=== PATIENT | female | born 1980 | race Caucasian/White ===

== ENCOUNTER → 2019-12-17 08:53 | Outpatient (CLI) | payer OTHER, MEDICAID, SELFPAY ==
[2019-12-19 15:38] LABS: COVID19 Sendout Not Detected (Not Detected)
== END ==
PROVIDERS: Visit Provider Physician Assistant
DX: Z11.59 Encounter for screening for other viral diseases (principal); R11.2 Nausea with vomiting, unspecified
CPT/HCPCS: 87635

== ENCOUNTER 2020-01-18 18:10 | Emergency (ER) | payer OTHER, MEDICAID, SELFPAY ==
[2020-01-18] VITALS (12 sets, daily range): BP systolic 153–191; BP diastolic 111–125; PULSE 81–130; RESP 13–42; TEMP 36.4–36.7; O2SAT 95–100
--- NOTE | 2020-01-18 19:21 | ED.WEAKNESS ---
HPI - Weakness General Chief complaint: Weakness Stated complaint: Sweating, Coughing, Throwing Up Time Seen by Provider: 01/18/20 19:08 Source: patient Mode of arrival: Ambulatory Limitations: no limitations History of Present Illness HPI Narrative: Blood pressure noted. No history of high blood pressure. Denies taking any [id number] cold medication. Denies any headache chest pain or dyspnea. No numbness tingling .. Patient complains 1 week of general fatigue as well as sore throat and hoarse voice. Her friend states she was tested positive for strep throat over the weekend. Patient had nonbloody vomiting yesterday and today. Decreased appetite oral intake in the past week. Urine specimen very dark at bedside. Complains of dry cough as well. Sweating as well. Denies any coronavirus exposure. EKG on triage noted. However will repeat has P-waves noted and may be sinus arrhythmia. No history of atrial fibrillation. Will repeat EKG after normal saline bolus. Today patient states started with urinary urgency and frequency. Denies drug abuse or use, does states she drank alcohol today. But denies every day alcohol use Related Data Previous Rx's Medication Instructions Recorded lisinopril 5 mg PO DAILY #14 tab 01/18/20 nitrofurantoin monohyd/m-cryst 100 mg PO Q12H 5 Days #10 cap 01/18/20 [Macrobid] Allergies Allergy/AdvReac Type Severity Reaction Status Date / Time PENICILLIN Allergy Mild HIVES,FEVER Uncoded 12/17/19 08:56 ,RASH Review of Systems Review of Systems Narrative: GENERAL: Complains of chills, fatigue, malaise, fever, sweats. HEENT: Denies sinus pain, ear pain, complains of sore throat, denies difficulty swallowing, dizziness. RESPIRATORY: Denies dyspnea, complains cough, denies wheezing, hemoptysis, sputum. CARDIOVASCULAR: Denies chest pain, palpitations, orthopnea, edema, GASTROINTESTINAL: Complains nausea, vomiting, denies abdominal pain, diarrhea, constipation, melena. : Complains dysuria, frequency, denies incontinence, hematuria, urinary retention. MUSCULOSKELETAL: denies weakness, joint pain, or bony pain SKIN: Denies rash, skin lesions, or other NEUROLOGIC: Denies weakness, headache, numbness, change in speech, confusion, seizures, incoordination. PSYCHIATRIC: No concerning psychosocial issues. ROS Unobtainable: All systems reviewed & are unremarkable except as noted in HPI and below Patient History Social History Smoking Status: Current every day smoker Smoking Status: Current every day smoker alcohol intake frequency: holidays/special occasions only Substance Use Type: does not use Exam Narrative Exam Narrative: GENERAL: patient appears stated age. Well-nourished, well-developed patient, in no distress, not toxic HEAD: Atraumatic. Normocephalic. EYES: Pupils equal round and reactive. Extraocular motions intact. No scleral icterus. No injection or drainage. ENT: Nose without bleeding, purulent drainage. Throat without erythema, tonsillar hypertrophy or exudate. Airway patent. NECK: Trachea midline. Non tender CARDIOVASCULAR: Tachycardia with Regular rate and rhythm without murmurs, gallops, or rubs. RESPIRATORY: Clear to auscultation. Breath sounds equal bilaterally. No wheezes, rales, or rhonchi. Speaks full sentences GASTROINTESTINAL: Abdomen soft, non-tender, nondistended. EXTREMITIES: No edema or joint tenderness. BACK: Nontender without deformity or crepitance. No flank tenderness. NEURO: AOx3. SKIN: No rash or erythema of visible areas PSYCH: Slightly anxious, is cooperative Initial Vital Signs Initial Vital Signs: Vital Signs Temperature 97.5 F L 01/18/20 18:38 Pulse Rate 130 H 01/18/20 18:38 Respiratory Rate 20 01/18/20 18:38 Blood Pressure 185/125 H 01/18/20 18:38 Pulse Oximetry 98 01/18/20 18:38 Course Orders Ordered: ED Orders 01/18/20 20:06 XR chest 1V Stat Discontinued Medications Sodium Chloride (Normal Saline 0.9%) 1,000 mls @ 1,000 mls/hr IV BOLUS ONE Stop: 01/18/20 20:17 Last Infusion: 01/18/20 21:08 Dose: 1,000 mls/hr Documented by: Admin: 01/18/20 20:08 Dose: 1,000 mls/hr Documented by: SOLEDAD Lisinopril (Zestril) 5 mg PO NOW ONE Stop: 01/18/20 21:40 Last Admin: 01/18/20 21:51 Dose: 5 mg Documented by: YURY Nitrofurantoin Macrocrystals (Macrobid 100 Mg Capsule) 100 mg PO NOW ONE Stop: 01/18/20 21:40 Last Admin: 01/18/20 21:49 Dose: 100 mg Documented by: YURY Reevaluation(s) Reevaluation #1: 175/114.... Blood pressures improved. Trending downward after lisinopril. Appropriate for discharge home. Patient has no complaints of chest pain dyspnea palpitation headaches at this time. No numbness tingling or weakness spoke with patient results. Likely viral upper respiratory infection/UTI Time: 22:11 Vital Signs Vital signs: Vital Signs - 8 hr 01/18/20 21:00 01/18/20 21:30 01/18/20 21:51 Temperature Pulse Rate 88 88 117 H Respiratory Rate 23 20 Blood Pressure 179/124 H 191/117 H 191/117 H Pulse Oximetry 100 100 01/18/20 22:00 01/18/20 22:50 Temperature 98.0 F Pulse Rate 86 Respiratory Rate 20 Blood Pressure 175/114 H Pulse Oximetry 100 MDM - Weakness Differential Diagnosis Differential diagnosis: Likely dehydration and other (UTI/anxiety/alcohol intoxication/strep throat/upper respiratory infection) Lab Data Attestation: I reviewed the patient's lab results. Result diagrams: 01/18/20 19:16 01/18/20 19:16 Labs: Lab Results 01/18/20 01/18/20 01/18/20 Range/Units 18:51 18:51 19:16 WBC 9.3 (4.5-11.0) X10^3/uL RBC 4.47 (4.0-5.2) X10^6/uL Hgb 15.2 (12.0-16.0) g/dL Hct 44.0 (36-46) % MCV 98.5 (80-100) fL MCH 34.0 (26-34) PG MCHC 34.5 (30-36) % RDW 14.0 (11.6-14.8) % Plt Count 155 (150-400) X10^3/uL Neut % (Auto) 74.7 (50-75) % Lymph % (Auto) 17.4 L (25-40) % [place] % (Auto) 7.1 (3-14) % Eos % (Auto) 0.6 L (2-4) % Baso % (Auto) 0.2 (0-2) % Neut # (Auto) 7000 (2109-4753) /uL Lymph # (Auto) 1600 (5762-9027) /uL [place] # (Auto) 700 (0-900) /uL Eos # (Auto) 100 (0-450) /uL Baso # (Auto) 0 (0-100) /uL PT (10.1-12.7) SECONDS INR (0.9-1.3) APTT (26.4-36.2) SECONDS Sodium (137-145) mmol/L Potassium (3.4-5.1) mmol/L Chloride (98-107) mmol/L Carbon Dioxide (22-32) mmol/L BUN (7-17) mg/dL Creatinine (0.52-1.04) mg/dL Estimated GFR (>60) mL/min BUN/Creatinine Ratio (6-22) Glucose (70-100) mg/dL Calcium (8.4-10.2) mg/dL Total Bilirubin (0.2-1.3) mg/dL AST (14-36) IU/L ALT (<35) IU/L Alkaline Phosphatase (38-126) U/L Total Creatine Kinase (30-135) U/L CK-MB (CK-2) CK-MB (CK-2) Rel Index Troponin I (0.01-0.034) ng/mL Total Protein (6.3-8.2) g/dL Albumin (3.5-5.0) g/dL Globulin (1.7-4.1) g/dL Albumin/Globulin Ratio (1.0-2.8) Lipase (23-300) U/L Urine RBC 0-1/hpf (0-5/HPF) Urine WBC 5-10/hpf H (0-5/HPF) Ur Squamous Epith Cells 1-5 /hpf (0-5/HPF) Ur Renal Epithelial Cell 0-1/hpf (0-1/HPF) Amorphous Sediment 1+ Urine Bacteria Many (>30) H (None) Urine Mucus 1+ H (Negative) Ur Culture Indicated? Specimen cultured U Opiates 300ng/mL cut Negative (Negative) Ur Oxycodone Screen Negative (Negative) Urine Methadone Screen Negative (Negative) Ur Barbiturates Screen Negative (Negative) U Tricyclic Antidepress Negative (Negative) Ur Phencyclidine Scrn Negative (Negative) Ur Amphetamines Screen Negative (Negative) U Methamphetamines Scrn Negative (Negative) Ur MDMA Scrn (Ecstasy) Negative (Negative) U Benzodiazepines Scrn Negative (Negative) Urine Cocaine Screen Negative (Negative) U Marijuana (THC) Screen Negative (Negative) Ethyl Alcohol ( - 10) mg/dL 01/18/20 01/18/20 01/18/20 Range/Units 19:16 19:16 19:16 WBC (4.5-11.0) X10^3/uL RBC (4.0-5.2) X10^6/uL Hgb (12.0-16.0) g/dL Hct (36-46) % MCV (80-100) fL MCH (26-34) PG MCHC (30-36) % RDW (11.6-14.8) % Plt Count (150-400) X10^3/uL Neut % (Auto) (50-75) % Lymph % (Auto) (25-40) % [place] % (Auto) (3-14) % Eos % (Auto) (2-4) % Baso % (Auto) (0-2) % Neut # (Auto) (5511-2710) /uL Lymph # (Auto) (8567-3998) /uL [place] # (Auto) (0-900) /uL Eos # (Auto) (0-450) /uL Baso # (Auto) (0-100) /uL PT 9.6 L (10.1-12.7) SECONDS INR 0.8 L (0.9-1.3) APTT 35 (26.4-36.2) SECONDS Sodium 135 L (137-145) mmol/L Potassium 3.7 (3.4-5.1) mmol/L Chloride 99 (98-107) mmol/L Carbon Dioxide 24 (22-32) mmol/L BUN 7 (7-17) mg/dL Creatinine 0.60 (0.52-1.04) mg/dL Estimated GFR > 60.0 (>60) mL/min BUN/Creatinine Ratio 11.7 (6-22) Glucose 86 (70-100) mg/dL Calcium 8.9 (8.4-10.2) mg/dL Total Bilirubin 1.4 H (0.2-1.3) mg/dL AST 165 H (14-36) IU/L ALT 55 H (<35) IU/L Alkaline Phosphatase 124 (38-126) U/L Total Creatine Kinase 58 (30-135) U/L CK-MB (CK-2) TNP CK-MB (CK-2) Rel Index TNP Troponin I < 0.012 (0.01-0.034) ng/mL Total Protein 8.0 (6.3-8.2) g/dL Albumin 4.2 (3.5-5.0) g/dL Globulin 3.8 (1.7-4.1) g/dL Albumin/Globulin Ratio 1.1 (1.0-2.8) Lipase 62 (23-300) U/L Urine RBC (0-5/HPF) Urine WBC (0-5/HPF) Ur Squamous Epith Cells (0-5/HPF) Ur Renal Epithelial Cell (0-1/HPF) Amorphous Sediment Urine Bacteria (None) Urine Mucus (Negative) Ur Culture Indicated? U Opiates 300ng/mL cut (Negative) Ur Oxycodone Screen (Negative) Urine Methadone Screen (Negative) Ur Barbiturates Screen (Negative) U Tricyclic Antidepress (Negative) Ur Phencyclidine Scrn (Negative) Ur Amphetamines Screen (Negative) U Methamphetamines Scrn (Negative) Ur MDMA Scrn (Ecstasy) (Negative) U Benzodiazepines Scrn (Negative) Urine Cocaine Screen (Negative) U Marijuana (THC) Screen (Negative) Ethyl Alcohol 98 H ( - 10) mg/dL Point of Care Testing Test Results Negative Rapid Strep A Negative Urine Dip Bedside Urine Glucose Negative Bedside Urine Bilirubin - Negative Bedside Urine Ketone - Negative Urine Specific [place] 1.015 Bedside Urine Occult Blood +/- Bedside Urine pH 6.0 Bedside Urine Protein +/- 15 Bedside Urine Urobilinogen - Negative Bedside Urine Nitrite + Positive Bedside Urine Leukocytes +/- 15 Esterase Imaging Data Chest x-ray: Radiologist Impression: [address] [address] XRay Report Signed Patient: Pamela Gtz [facility]#: [id number] : 1980Acct:[id number] Age/Sex: 39 / FDate of Service: 01/18/20 Loc: ED Accession Number: [id number] Procedure: XR chest 1V Ordering Provider: Dallin Bernal MD PROCEDURE: XR CHEST 1V INDICATIONS: Cough TECHNIQUE: One view of the chest was acquired. COMPARISON: None. FINDINGS: Surgical changes and devices: None. Lungs and pleura: Lungs are clear. No pleural effusions or pneumothorax. Mediastinum: Mediastinal contours appear normal. Heart size is normal. Bones and chest wall: No suspicious bony lesions. Overlying soft tissues appear unremarkable. IMPRESSION: No acute cardiopulmonary abnormality. Dictated by: Mitch Peoples M.D. on 01/18/2020 at 21:05 Approved by: Mitch Peoples M.D. on 01/18/2020 at 21:05 ECG Data Attestation: I personally reviewed and interpreted this ECG as follows: Interpretation: First EKG at 1855 resulted as atrial fibrillation with RVR ventricular rate 107, however, disagree there are P-waves in lead 2. Likely sinus arrhythmia. Repeat EKG at 06/15/2006 shows normal sinus rhythm rate 82. No ST elevation. MDM Narrative Medical decision making narrative: Appropriate for discharge home. No no no new onset atrial fibrillation. Patient feels better after IV fluids. Reviewed results with patient and patient does have a family physician to follow up with. Desires [facility] for prescriptions. Informed patient needs blood pressure recheck with family physician in 1 or 2 weeks. Patient asymptomatic with elevated blood pressure. Appropriate for discharge home. It would be dangerous to lower 2 normal blood pressure at this time. Patient has not seen a family physician or seen anybody or had her blood pressure taken for a long time Discharge Plan Departure Patient Disposition: Home Clinical Impression: UTI (urinary tract infection) Qualifiers: Urinary tract infection type: site unspecified Hematuria presence: without hematuria Qualified Code(s): N39.0 - Urinary tract infection, site not specified Hypertension Qualifiers: Hypertension type: essential hypertension Qualified Code(s): I10 - Essential (primary) hypertension Discharge Date/Time: 01/18/20 22:50 Instructions: Essential Hypertension, DI for Urinary Tract Infection (UTI) Activity Restrictions/Additional Instructions: Continue blood pressure medication tomorrow. Call your family physician as discussed tomorrow for appointment next week for recheck of your blood pressure. Return if worse or if any questions or concerns or any chest pain or palpitations or dyspnea or headache prescription has been sent to [facility] Prescriptions: New nitrofurantoin monohyd/m-cryst [Macrobid] 100 mg capsule 100 mg PO Q12H 5 Days Qty: 10 RF: 0 lisinopril 5 mg tablet 5 mg PO DAILY Qty: 14 RF: 0 Stand Alone Forms: Work Release Note
[2020-01-18 19:52] LABS: Add Manual Diff / Slide Review NO; Basophils Absolute Auto 0 /uL (0-100); Basophils Percent Auto 0.2 % (0-2); Eosinophils Absolute Auto 100 /uL (0-450); Eosinophils Percent Auto 0.6 % (2-4); Hemoglobin 15.2 g/dL (12.0-16.0); Lymphocytes Absolute Auto 1600 /uL (1100-4500); Lymphocytes Percent Auto 17.4 % (25-40); Mean Corpuscular HGB Conc 34.5 % (30-36); Mean Corpuscular Volume 98.5 fL (80-100); Monocytes Absolute Auto 700 /uL (0-900); Monocytes Percent Auto 7.1 % (3-14); Neutrophils Absolute Auto 7000 /uL (1500-7000); Neutrophils Percent Auto 74.7 % (50-75); Platelet Count 155 X10^3/uL (150-400); Red Blood Cell Count 4.47 X10^6/uL (4.0-5.2); White Blood Cell Count 9.3 X10^3/uL (4.5-11.0)
[2020-01-18 20:04] LABS: UR Morphine/Opiate cutoff 300 Negative (Negative); Ur Creatinine Normal (Normal); Ur Specific Gravity Normal (Normal); Urine Amphetamines Negative (Negative); Urine Barbiturates Negative (Negative); Urine Benzodiazepines Negative (Negative); Urine Cocaine Negative (Negative); Urine MDMA Negative (Negative); Urine Methadone Negative (Negative); Urine Methamphetamines Negative (Negative); Urine Oxycodone Negative (Negative); Urine Phencyclidine Negative (Negative); Urine Tetrahydrocannabinol Negative (Negative); Urine Tricyclic Antidepressant Negative (Negative); Urine pH Normal (Normal)
--- NOTE | 2020-01-18 20:06 | DI.RAD.S_ITS ---
PROCEDURE: XR CHEST 1V INDICATIONS: Cough TECHNIQUE: One view of the chest was acquired. COMPARISON: None. FINDINGS: Surgical changes and devices: None. Lungs and pleura: Lungs are clear. No pleural effusions or pneumothorax. Mediastinum: Mediastinal contours appear normal. Heart size is normal. Bones and chest wall: No suspicious bony lesions. Overlying soft tissues appear unremarkable. IMPRESSION: No acute cardiopulmonary abnormality. Dictated by: Mitch Peoples M.D. on 01/18/2020 at 21:05 Approved by: Mitch Peoples M.D. on 01/18/2020 at 21:05
[2020-01-18 20:07] LABS: INR 0.8 (0.9-1.3); Prothrombin Time 9.6 SECONDS (10.1-12.7)
[2020-01-18] MEDS: SODIUM CHLORIDE 0.9% 1,000 ML 1000 ML IV (20:08)
[2020-01-18 20:10] LABS: PTT Partial Thromboplastin Tim 35 SECONDS (26.4-36.2)
[2020-01-18 20:11] LABS: Alanine Aminotransferase 55 IU/L (<35); Albumin 4.2 g/dL (3.5-5.0); Albumin Globulin Ratio 1.1 (1.0-2.8); Alkaline Phosphatase 124 U/L (38-126); Aspartate Aminotransferase 165 IU/L (14-36); BUN Creatinine Ratio 11.7 (6-22); Bilirubin Total 1.4 mg/dL (0.2-1.3); Blood Urea Nitrogen 7 mg/dL (7-17); Calcium 8.9 mg/dL (8.4-10.2); Carbon Dioxide 24 mmol/L (22-32); Chloride 99 mmol/L (98-107); Estimated Glomerular Filt Rate > 60.0 mL/min (>60); Globulin 3.8 g/dL (1.7-4.1); Glucose 86 mg/dL (70-100); HEMOLYSIS < 15 (0-50); Lipase 62 U/L (23-300); Potassium 3.7 mmol/L (3.4-5.1); Sodium 135 mmol/L (137-145)
[2020-01-18 20:12] LABS: Creatine Kinase 58 U/L (30-135)
[2020-01-18 20:16] LABS: Ethanol (ETOH) 98 mg/dL
[2020-01-18 20:23] LABS: Troponin I < 0.012 ng/mL (0.01-0.034)
[2020-01-18 20:32] LABS: Amorphous Sediment Urine 1+; Bacteria Urine Many (>30); Culture Indicated Urine Specimen Cultured; Mucus Urine 1+ (Negative); RBC Urine 0-1/HPF (0-5/HPF); Renal Epithelial Cells Urine 0-1/HPF (0-1/HPF); Squamous Epithelial Cell Urine 1-5 /HPF (0-5/HPF); WBC Urine 5-10/HPF (0-5/HPF)
[2020-01-18] MEDS: NITROFURANTOIN ER 100 MG CAPSULE PO (21:49)
[2020-01-18] MEDS: lisinopriL 5 MG TABLET PO (21:51)
--- NOTE | 2020-01-18 22:50 | PC.NURSE ---
Patient blood pressure increased prior to discharge but expressed that she wanted to leave regardless due to dog being in heat and being in her car. informed.
[2020-01-20 12:12] LABS: COVID19 Sendout Not Detected (Not Detected)
== END 2020-01-18 22:50 | disposition home or self-care (01) ==
PROVIDERS: Emergency Medicine; Emergency Provider Emergency Medicine
DX: N39.0 Urinary tract infection, site not specified (principal); I10 Essential (primary) hypertension; R00.0 Tachycardia, unspecified; R11.10 Vomiting, unspecified
CPT/HCPCS: 36415; 71045; 80053; 80305; 80320; 81003; 81015; 81025; 82550; 83690; 84484; 85025; 85610; 85730; 87077; 87086; 87186; 87635; 87880; 93005; 96360; 99284